=== PATIENT | female | born 1985 | race Hispanic/Latino ===

== ENCOUNTER 2017-10-20 14:17 | Emergency (ER) | payer BC, MEDICAID, OTHER ==
[2017-10-20] MEDS ORDERED: ASPIRIN 325 MG TABLET ONE (15:01)
[2017-10-20 15:40] LABS: APPEARANCE,URINE Clear (CLEAR); BILIRUBIN,URINE Negative (NEGATIVE); COLOR,URINE Yellow (YELLOW); GLUCOSE, URINE (UA) >=1000 mg/dL (NEGATIVE); KETONES,URINE Negative (NEGATIVE); LEUKOCYTE ESTERASE ,URINE Negative (NEGATIVE); NITRATE,URINE Negative (NEGATIVE); OCCULT BLOOD,URINE Negative (NEGATIVE); PH,URINE 7.5 (5.0-8.0); PROTEIN,URINE Negative (NEGATIVE); UROBILINOGEN,URINE 0.2 mg/dL (0.2-1.0)
[2017-10-20 15:42] LABS: HCG,QUAL RESULT NEGATIVE (NEGATIVE)
[2017-10-20 15:44] LABS: BASOPHILS % (AUTO) 0.8 % (0.0-5.0); EOSINOPHILS % (AUTO) 1.7 % (0.0-8.0); LYMPHOCYTES % (AUTO) 28.7 % (21.0-51.0); MEAN CORPUSCULAR HEMOGLOBIN 29.7 pg (27.0-33.0); MEAN CORPUSCULAR HGB CONC 35.3 g/dL (32.0-36.0); MEAN CORPUSCULAR VOLUME 84.1 fL (79-99); MONOCYTES % (AUTO) 5.5 % (3.0-13.0); NEUTROPHILS % (AUTO) 63.3 % (40.0-77.0); PLATELET COUNT (AUTO) 370 K/uL (130-400); RED BLOOD CELL COUNT(AUTO) 4.87 MIL/uL (4.00-5.50); RED CELL DISTRIBUTION WIDTH 13.9 % (11.0-15.5); WHITE BLOOD COUNT (AUTO) 10.1 K/uL (4.8-10.8)
[2017-10-20 15:51] LABS: CREATININE 0.7 mg/dL (0.5-1.5); POTASSIUM 3.6 mmol/L (3.5-5.1)
[2017-10-20 15:57] LABS: ALBUMIN 3.4 g/dL (3.5-5.0); BILIRUBIN,TOTAL 0.4 mg/dL (0.2-1.0); TOTAL PROTEIN, SERUM 7.5 g/dL (6.0-8.3)
[2017-10-20 16:04] LABS: INR 0.86 (0.85-1.15); PARTIAL THROMBOPLASTIN TIME 22.5 SEC (26.3-35.5); PROTHROMBIN TIME 8.9 SEC (9.6-11.6)
[2017-10-20 16:08] LABS: BACTERIA,URINE Rare /HPF (None Seen); SQUAMOUS EPITHELIAL CELL,UR Few /HPF (0-2); WBC,URINE 0-1 /HPF (0-1)
== END 2017-10-20 17:52 | disposition home or self-care (01) ==
LOC: EDH 14:17
DX: R07.89 Other chest pain (principal); E11.9 Type 2 diabetes mellitus without complications; Z79.4 Long term (current) use of insulin
CPT/HCPCS: 36415; 71045; 80053; 81001; 81025; 82550; 84484; 85025; 85610; 85730; 93005

== ENCOUNTER 2018-08-27 20:06 | Emergency (ER) | payer BC ==
[2018-08-27 21:09] LABS: APPEARANCE,URINE Clear (CLEAR); BILIRUBIN,URINE Negative (NEGATIVE); COLOR,URINE Yellow (YELLOW); GLUCOSE, URINE (UA) >=1000 mg/dL (NEGATIVE); KETONES,URINE Negative (NEGATIVE); LEUKOCYTE ESTERASE ,URINE Negative (NEGATIVE); NITRATE,URINE Negative (NEGATIVE); OCCULT BLOOD,URINE Large (NEGATIVE); PROTEIN,URINE Negative (NEGATIVE); UROBILINOGEN,URINE 0.2 mg/dL (0.2-1.0)
[2018-08-27 21:16] LABS: HCG,QUAL RESULT NEGATIVE (NEGATIVE)
[2018-08-27 21:38] LABS: BACTERIA,URINE Rare /HPF (None Seen); SQUAMOUS EPITHELIAL CELL,UR Rare /HPF (0-2); WBC,URINE 0-1 /HPF (0-1)
== END 2018-08-27 22:10 | disposition home or self-care (01) ==
LOC: EDH 20:06
DX: E10.8 Type 1 diabetes mellitus with unspecified complications (principal); F41.1 Generalized anxiety disorder; I10 Essential (primary) hypertension; E78.5 Hyperlipidemia, unspecified; Z90.49 Acquired absence of other specified parts of digestive tract; Z98.890 Other specified postprocedural states; Z79.4 Long term (current) use of insulin
CPT/HCPCS: 81001; 81025; 82948

== ENCOUNTER 2019-09-01 16:18 | Emergency (ER) | payer BC ==
[2019-09-01 16:56] LABS: BASOPHILS % (AUTO) 0.5 % (0.0-5.0); EOSINOPHILS % (AUTO) 1.3 % (0.0-8.0); HEMATOCRIT 41.1 % (36-48); LYMPHOCYTES % (AUTO) 22.9 % (21.0-51.0); MEAN CORPUSCULAR HEMOGLOBIN 28.7 pg (27.0-33.0); MEAN CORPUSCULAR HGB CONC 34.1 g/dL (32.0-36.0); MEAN CORPUSCULAR VOLUME 84.2 fL (79-99); MONOCYTES % (AUTO) 5.3 % (3.0-13.0); NEUTROPHILS % (AUTO) 69.5 % (40.0-77.0); PLATELET COUNT (AUTO) 330 K/uL (130-400); RED BLOOD CELL COUNT(AUTO) 4.88 MIL/uL (4.00-5.50); RED CELL DISTRIBUTION WIDTH 12.4 % (11.0-15.5); WHITE BLOOD COUNT (AUTO) 10.9 K/uL (4.8-10.8)
[2019-09-01] MEDS ORDERED: SODIUM CHLORIDE 0.9% 1000ML 1,000 ML IV ONE (17:02)
[2019-09-01 17:14] LABS: ALBUMIN 3.6 g/dL (3.5-5.0); BILIRUBIN,TOTAL 0.5 mg/dL (0.2-1.0); CREATININE 0.8 mg/dL (0.5-1.5); POTASSIUM 4.1 mmol/L (3.5-5.1); TOTAL PROTEIN, SERUM 7.7 g/dL (6.0-8.3)
[2019-09-01 18:12] LABS: ABG BASE EXCESS -2.2 mmol/L (-2.0-3.0); ABG HCO3 21.2 mmol/L (21.0-28.0); ABG OXYGEN SATURATION 97.8 % (95.0-99.0); ABG PCO2 33 mmHg (32-45)
== END 2019-09-01 20:39 | disposition home or self-care (01) ==
LOC: EDH 16:18
DX: E13.65 Other specified diabetes mellitus with hyperglycemia (principal); I10 Essential (primary) hypertension; E78.5 Hyperlipidemia, unspecified; Z98.890 Other specified postprocedural states
CPT/HCPCS: 36415; 36600; 80053; 82803; 82948; 83690; 85025; 87040 ×2; 96360; 96361; 99283; J7030

== ENCOUNTER 2020-06-14 18:53 | Emergency (ER) | payer BC, OTHER ==
[2020-06-14] MEDS ORDERED: KETOROLAC TROMETHAMINE 30MG/ML ONE (19:21)
[2020-06-14] MEDS ORDERED: DIAZEPAM 5 MG TABLET ONE (19:21)
[2020-06-14 20:50] LABS: CREATININE 0.9 mg/dL (0.5-1.5); POTASSIUM 4.2 mmol/L (3.5-5.1)
[2020-06-14 20:51] LABS: ALBUMIN 3.4 g/dL (3.5-5.0); BILIRUBIN,TOTAL 0.4 mg/dL (0.2-1.0); TOTAL PROTEIN, SERUM 6.8 g/dL (6.0-8.3)
[2020-06-14 21:00] LABS: BASOPHILS % (AUTO) 0.5 % (0.0-5.0); EOSINOPHILS % (AUTO) 1.3 % (0.0-8.0); HEMATOCRIT 41.3 % (36-48); LYMPHOCYTES % (AUTO) 27.1 % (21.0-51.0); MEAN CORPUSCULAR HEMOGLOBIN 28.8 pg (27.0-33.0); MEAN CORPUSCULAR HGB CONC 33.9 g/dL (32.0-36.0); MONOCYTES % (AUTO) 4.8 % (3.0-13.0); NEUTROPHILS % (AUTO) 65.8 % (40.0-77.0); PLATELET COUNT (AUTO) 309 K/uL (130-400); RED BLOOD CELL COUNT(AUTO) 4.86 MIL/uL (4.00-5.50); RED CELL DISTRIBUTION WIDTH 12.3 % (11.0-15.5); WHITE BLOOD COUNT (AUTO) 10.4 K/uL (4.8-10.8)
[2020-06-14] MEDS ORDERED: ONDANSETRON HCL 4 MG/2 ML VIAL ONE (21:13)
[2020-06-14] MEDS ORDERED: MORPHINE SULFATE 4 MG/1ML SYG ONE (21:13)
[2020-06-14] MEDS ORDERED: DEXAMETHASONE SOD PHOSPHATE 10MG/ML 1ML VIAL ONE (22:29)
== END 2020-06-14 22:50 | disposition home or self-care (01) ==
LOC: EDH 18:53
DX: M79.652 Pain in left thigh (principal); E78.5 Hyperlipidemia, unspecified; E11.9 Type 2 diabetes mellitus without complications; I10 Essential (primary) hypertension; Z90.49 Acquired absence of other specified parts of digestive tract; Z98.890 Other specified postprocedural states; Z72.0 Tobacco use; Z79.899 Other long term (current) drug therapy
CPT/HCPCS: 36415; 72131; 80053; 85025; 86140; 93926; 93971; 96372; 96374; 96375; 99285; J1100; J1885; J2270; J2405

== ENCOUNTER 2020-06-17 20:02 | Emergency (ER) | payer OTHER ==
[2020-06-17] MEDS ORDERED: FENTANYL CITRATE PF 50 MCG/1 ML 2ML VIAL ONE (20:24)
== END 2020-06-17 20:35 | disposition home or self-care (01) ==
LOC: EDH 20:02
DX: M54.42 Lumbago with sciatica, left side (principal); E11.9 Type 2 diabetes mellitus without complications; E78.5 Hyperlipidemia, unspecified; I10 Essential (primary) hypertension; Z90.49 Acquired absence of other specified parts of digestive tract; Z90.710 Acquired absence of both cervix and uterus; Z72.0 Tobacco use; Z79.899 Other long term (current) drug therapy
CPT/HCPCS: 96374; 99283; J3010

== ENCOUNTER 2024-07-05 19:28 | Emergency (ER) | payer BC, OTHER ==
[~2024-07-05] VITALS: Ht 157.5 cm; Wt 78.0 kg
[2024-07-05 19:30] VITALS: BP 149/88; PULSE 91; RESP 20; TEMP 97.9
--- NOTE | 2024-07-05 19:51 | EKG ---
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 : 1985 Requested By: CASS MERCHANT Order Number: [id number] Reading MD: Lambert Goddard Measurements Intervals Thayer Rate: 92 P: 10 NV: 160 QRS: 10 QRSD: 84 T: 0 QT: 362 QTc: 453 Interpretive Statements Sinus rhythm Multiple ventricular premature complexes Low voltage, precordial leads Borderline T abnormalities, diffuse leads Compared to ECG 10/20/2017 14:23:54 Ventricular premature complex(es) now present Low QRS voltage now present T-wave abnormality now present Electronically Signed On 07-06-2024 17:24:04 [employer] by Lambert Goddard Please click the below link to view image of tracing.
[2024-07-05 20:24] LABS: APPEARANCE,URINE CLEAR (CLEAR); BILIRUBIN,URINE NEGATIVE (NEGATIVE); COLOR,URINE LIGHT-YELLOW (YELLOW); GLUCOSE, URINE (UA) >=1000 mg/dL (NEGATIVE); KETONES,URINE NEGATIVE (NEGATIVE); LEUKOCYTE ESTERASE ,URINE NEGATIVE Leu/uL (NEGATIVE); NITRATE,URINE NEGATIVE (NEGATIVE); OCCULT BLOOD,URINE NEGATIVE (NEGATIVE); PH,URINE 6.5 (5.0-8.0); PROTEIN,URINE NEGATIVE (NEGATIVE)
[2024-07-05 20:25] LABS: ADD UA MICROSCOPIC YES
[2024-07-05 20:28] LABS: MUCUS,URINE RARE LPF (None Seen); RBC,URINE 0-1 /HPF (0-1); SQUAMOUS EPITHELIAL CELL,UR FEW /HPF (0-2); WBC,URINE 0-1 /HPF (0-1); YEAST,URINE BUDDING RARE /HPF (None Seen)
[2024-07-05] MEDS: 0.9%NACL 1000ML 1,000 ML IV ONE (20:47)
[2024-07-05 20:53] LABS: BASOPHILS # (AUTO) 0.08 K/uL (0.00-0.20); BASOPHILS % (AUTO) 0.8 % (0.0-5.0); EOSINOPHILS # (AUTO) 0.16 K/uL (0.00-0.70); EOSINOPHILS % (AUTO) 1.6 % (0.0-8.0); HEMATOCRIT 38.8 % (36-48); IMMATURE GRANULOCYTE ABSOLUTE 0.08 K/uL (0-1); LYMPHOCYTES % (AUTO) 29.7 % (21.0-51.0); MEAN CORPUSCULAR HEMOGLOBIN 29.2 pg (27.0-33.0); MEAN CORPUSCULAR HGB CONC 33.5 g/dL (32.0-36.0); MEAN CORPUSCULAR VOLUME 87.2 fL (79-99); MONOCYTES # (AUTO) 0.6 K/uL (0.1-1.0); MONOCYTES % (AUTO) 5.5 % (3.0-13.0); NEUTROPHILS # (AUTO) 6.3 K/uL (1.8-7.7); NEUTROPHILS % (AUTO) 61.6 % (40.0-77.0); PLATELET COUNT (AUTO) 403 K/uL (130-400); RED BLOOD CELL COUNT(AUTO) 4.45 MIL/uL (4.00-5.50); RED CELL DISTRIBUTION WIDTH 12.1 % (11.0-15.5); WHITE BLOOD COUNT (AUTO) 10.2 K/uL (4.8-10.8)
[2024-07-05 21:09] LABS: CARBON DIOXIDE 31 mmol/L (21-32); CHLORIDE 100 mmol/L (101-111); CREATININE 0.8 mg/dL (0.5-1.0); GLOMERULAR FILTR. RATE CALC 97 mL/min (>90); GLUCOSE,RANDOM 295 mg/dL (70-105); POTASSIUM 3.5 mmol/L (3.5-5.1); SODIUM SERUM 136 mmol/L (136-145); UREA NITROGEN, BLOOD 15 mg/dL (7-18)
[2024-07-05 21:36] LABS: CREATINE KINASE, TOTAL 94 U/L (21-232); HCG,QUANTITATIVE 0 mIU/mL (0-5)
[2024-07-05] MEDS ORDERED: MELO-108 PO (22:02)
--- NOTE | 2024-07-05 22:03 | ERN ---
General Chief Complaint: Hyperglycemia Stated Complaint: C/O HIGH GLUCOSE (308)AT HOME, DIZZINESS Time Seen by MD: 19:31 History of Present Illness Initial Comments 39-year-old female presents for dizziness and fatigue over the last few days. Patient reports that she feels a bit of congestion in her sinuses, she possibly and a low-grade fever. She has a sore throat. She reports that her glucose r eadings have been over 400 at times in the last few days despite taking her insulin. She denies any nausea vomiting diarrhea or abdominal discomfort. She was reports some lower back pain as well. This is chronic. Medical history: Type 2 diabetes, 60 mg of Lantus at night, 20 units of Humalog t.i.d., dyslipidemia on simvastatin. Allergies: Coded Allergies: No Known Drug Allergies (Unverified Allergy, Unknown, 09/01/19) Home Meds Active Scripts Meloxicam (Meloxicam) 15 Mg Tablet, 15 MG PO DAILY PRN for PAIN for 10 Days, #10 TAB Prov:CASS MERCHANT 07/05/24 Past Medical History Past Medical History: Diabetes-Type II, High Cholesterol, Hypertension Past Surgical History: Cholecystectomy, Female( History) LMP: Jun 22, 2024 ROS Dictation CONSTITUTIONAL: Fatigue and dizziness HEAD/FACE: No signs of trauma. EENT: No eye pain, no blurred vision, no tearing, no double vision, no ear pain, no ear discharge, no nose pain, no nasal congestion, no throat pain, no throat swelling, no mouth pain. RESPIRATORY: No cough, no orthopnea, no SOB, no stridor, no wheezing. CARDIOVASCULAR: No chest pain, no edema, no palpitations, no syncope. GASTROINTESTINAL/ABDOMINAL: No abdominal pain, no constipation, no diarrhea, no nausea, no vomiting. GENITOURINARY: No abnormal discharge, no dysuria, no frequent urination, no hematuria. No complaints of pain in the genitals. MUSCULOSKELETAL: No back pain, no gout, no joint pain, no joint swelling, no muscle pain, no muscle stiffness, no neck pain. INTEGUMENTARY: No change in color, no change in hair/nails, no dryness, no lesion, no lumps, no rash. NEUROLOGICAL/PSYCH: No anxiety, not depressed, no emotional problem, no headache, no numbness, no pre-existing deficit, no history of seizures, no tremors, no weakness. HEMATOLOGIC/LYMPHATIC: Not anemic, no history of blood clots, no apparent b leeding, no bruising, glands not swollen. All Systems Negative, Except as Noted. Physical Exam Physical Exam Dictation VITAL SIGNS: Reviewed. GENERAL APPEARANCE: Alert, oriented x3, no acute distress, obese. HEAD AND FACE: Non-traumatic. EYES: PERRL, pink conjunctivas, eyelid no trauma, anterior chamber clear. EARS: Pinnas intact and no signs of trauma or erythema. Ear canals clear and no discharge. TMs no erythema. NOSE: No discharge, no bleeding. OROPHARYNX: Mouth normal, teeth no caries, tongue pink. Pharynx clear, no erythema. Tonsils no exudates, no abscesses noted. Mucous membrane moist. NECK: Supple, non-tender, no thyromegaly, no masses, no JVD, no bruits. BREAST: Deferred. CHEST: No tenderness, no crepitus, no paradoxical movement, no retractions. LUNGS: Clear, well-ventilated, symmetric, no rales, no wheezing, no rhonchi, no stridor, good breath sounds bilaterally. HEART: Regular rate, regular rhythm, no murmur, no gallops. VASCULAR: No peripheral edema. ABDOMEN: Soft, positive bowel sounds, nondistended, no guarding, nontender, no rebound, no masses no hepatomegaly, no splenomegaly, no Molina's sign, no hernias. RECTAL: Deferred. GENITAL: Deferred. NEUROLOGICAL: Normal speech, gross motor function intact, gross sensory function intact. MUSCULOSKELETAL: Neck nontender, full range of motion, back nontender, full ra nge of motion. EXTREMITIES: Nontender, full range of motion. SKIN: Color pink, dry, no turgor, no rash, no lacerations, no abrasions, no contusions. LYMPHATICS: Deferred. Results Laboratory and Microbiology Lab and Micro Result Laboratory Tests Test 07/05/24 19:36 07/05/24 19:41 07/05/24 20:37 Whole Blood Glucose 312 MG/DL (70-110) H Urine Color LIGHT-YELLOW (YELLOW) Urine Appearance CLEAR (CLEAR) Urine pH 6.5 (5.0-8.0) Urine Specific [place] 1.041 (1.001-1.031) Urine Protein NEGATIVE mg/dL (NEGATIVE) Urine Glucose (UA) >=1000 mg/dL (NEGATIVE) H Urine Ketones NEGATIVE mg/dL (NEGATIVE) Urine Occult Blood NEGATIVE (NEGATIVE) Urine Nitrate NEGATIVE (NEGATIVE) Urine Bilirubin NEGATIVE mg/dL (NEGATIVE) Urine Urobilinogen 2.0 mg/dL (0.2-1.0) H Urine Leukocyte Esterase NEGATIVE Una/uL Urine RBC 0-1 /HPF (0-1) Urine WBC 0-1 /HPF (0-1) Urine Squamous Epithelial Cells FEW /HPF (0-2) Urine Bacteria None /HPF (None Seen) Urine Yeast RARE /HPF (None Seen) White Blood Count 10.2 K/uL (4.8-10.8) Red Blood Count 4.45 MIL/uL (4.00-5.50) Hemoglobin 13.0 g/dL (12.0-16.0) Hematocrit 38.8 % (36-48) Mean Corpuscular Volume 87.2 fL (79-99) Mean Corpuscular Hemoglobin 29.2 pg (27.0-33.0) Mean Corpuscular Hemoglobin Concent 33.5 g/dL (32.0-36.0) Red Cell Distribution Width 12.1 % (11.0-15.5) Platelet Count 403 K/uL (130-400) H Mean Platelet Volume 9.8 fL (7.5-10.5) Immature Granulocyte % (Auto) 0.8 % (0-1) Neutrophils (%) (Auto) 61.6 % (40.0-77.0) Lymphocytes (%) (Auto) 29.7 % (21.0-51.0) Monocytes (%) (Auto) 5.5 % (3.0-13.0) Eosinophils (%) (Auto) 1.6 % (0.0-8.0) Basophils (%) (Auto) 0.8 % (0.0-5.0) Neutrophils # (Auto) 6.3 K/uL (1.8-7.7) Lymphocytes # (Auto) 3.0 K/uL (1.0-4.8) Monocytes # (Auto) 0.6 K/uL (0.1-1.0) Eosinophils # (Auto) 0.16 K/uL (0.00-0.70) Basophils # (Auto) 0.08 K/uL (0.00-0.20) Absolute Immature Granulocyte (auto 0.08 K/uL (0-1) Nucleated Red Blood Cells 0.0 % (0.0-0.19) Sodium Level 136 mmol/L (136-145) Potassium Level 3.5 mmol/L (3.5-5.1) Chloride Level 100 mmol/L (101-111) L Carbon Dioxide Level 31 mmol/L (21-32) Blood Urea Nitrogen 15 mg/dL (7-18) Creatinine 0.8 mg/dL (0.5-1.0) Glomerular Filtration Rate Calc 97 mL/min (>90) Random Glucose 295 mg/dL (70-105) H Total Calcium 8.4 mg/dL (8.5-10.1) L Total Creatine Kinase 94 U/L (21-232) Troponin I High Sensitivity < 4.0 ng/L (4-50) L Human Chorionic Gonadotropin, Quant 0 mIU/mL (0-5) MDM CC: Fatigue, dizziness, hyperglycemia, lower back pain Historian: Patient Comorbidities: Obesity, diabetes, dyslipidemia Differential diagnosis: DKA, hypoglycemia, electrolyte abnormalities, ACS, arrhythmia, other. EKG: Sinus rhythm rate of 92 normal axis good R-wave progression intervals are stable. There unifocal PVCs noted. No STEMI. Independently interpreted by me. Labs: No leukocytosis, no anemia. Metabolic panel shows a glucose 312, otherwise unremarkable. The electrolytes are stable carbon dioxide stable. Low suspicion for DKA major metabolic derangement. Urinalysis shows high specific gravity and glucose consistent with dehydration and hyperglycemia. Patient received 1 L normal saline, also dose of Toradol for pain control. I do not see any life threats at this time. She received a dose of fluid for dehydration. Otherwise her glucose is controlled. She did take insulin prior to arrival here which probably correct with a glucose. We will DC the PCP follow up. ED Course Orders Procedure Category Date Status Time Cardiac Panel LAB 07/05/24 Complete 19:36 Cbc With Differential LAB 07/05/24 Complete 19:36 Basic Metabolic Panel LAB 07/05/24 Complete 19:36 Hcg,Quantitative LAB 07/05/24 Complete 19:36 Urinalysis Profile LAB 07/05/24 Complete 19:36 12 Lead Ekg Tracing- EKG 07/05/24 Complete Technical 19:36 0.9%Nacl 1000ml (Ns PHA 07/05/24 Complete 1000ml) 20:00 Ketorolac PHA 07/05/24 Complete Tromethamine 15mg/Ml 22:30 Current Medications Medications (Trade) Dose Ordered Sig/Brielle Route PRN Reason Start Time Stop Time Status Last Admin Dose Admin Ketorolac Tromethamine (toRADol) 15 mg ONCE ONCE IV 07/05/24 22:30 07/05/24 22:31 DC 07/05/24 22:21 Sodium Chloride 1,000 ml @ 0 mls/hr ONCE ONCE IV 07/05/24 20:00 07/05/24 20:01 DC 07/05/24 20:47 Vital Signs Date Time Temp Pulse Resp B/P (MAP) Pulse Ox O2 Delivery O2 Flow Rate FiO2 07/05/24 19:30 97.9 91 20 149/88 98 Room Air DX & DISP Disposition: Discharge Departure Impression: Primary Impression: Hyperglycemia Additional Impressions: Dehydration, Lower back pain Condition: Stable Scripts Meloxicam (Meloxicam) 15 Mg Tablet 15 MG PO DAILY PRN for PAIN for 10 Days, #10 TAB Prov: CASS MERCHANT DO 07/05/24 Additional Instructions: Your symptoms are consistent with hyperglycemia and dehydration. Your vital signs are stable. Your blood work (CBC, BNP, urinalysis) is stable other than elevated blood glucose at 307. You also have signs of dehydration on her urinalysis. You received a 1 L normal saline here in the ER. He had also received a dose of Toradol for your pain. I prescribed meloxicam for your lower back pain. Use as needed. Please continue to take your insulin as prescribed. Please follow up with your primary doctor. Please return to the emergency department as needed. Referrals: SELF,REFERRAL (PCP) CASS MERCHANT DO Jul 05, 2024 22:03
[2024-07-05] MEDS: ketOROlac 15MG/ML VIAL (15MG/ML) IV ONE (22:21)
== END 2024-07-05 22:40 | disposition home or self-care (01) ==
LOC: EDH 19:28
DX: E11.65 Type 2 diabetes mellitus with hyperglycemia (principal); E66.9 Obesity, unspecified; E78.00 Pure hypercholesterolemia, unspecified; E86.0 Dehydration; R10.2 Pelvic and perineal pain; I10 Essential (primary) hypertension; Z79.4 Long term (current) use of insulin; Z90.49 Acquired absence of other specified parts of digestive tract
CPT/HCPCS: 99284; 96374; 96361; 82550; 84484; 80048; 84702; 85025; 82948; 81001; 36415; 93005; J7030; J1885

== ENCOUNTER 2025-04-25 17:04 | Emergency (ER) | payer BC ==
[~2025-04-25] VITALS: Ht 157.5 cm; Wt 77.1 kg
[~2025-04-25 17:04] MED LIST: MELO-108 PO
[2025-04-25 18:01] LABS: IMMATURE GRANULOCYTE ABSOLUTE 0.05 K/uL (0-1); NUCLEATED RED BLOOD CELLS 0.0 % (0.0-0.19); PLATELET COUNT (AUTO) 331 K/uL (130-400); RED BLOOD CELL COUNT(AUTO) 5.01 MIL/uL (4.00-5.50); RED CELL DISTRIBUTION WIDTH 12.7 % (11.0-15.5); WHITE BLOOD COUNT (AUTO) 8.1 K/uL (4.8-10.8)
[2025-04-25 18:17] LABS: CREATININE 0.6 mg/dL (0.5-1.0); GLOMERULAR FILTR. RATE CALC 118.0 mL/min (>90); GLUCOSE,RANDOM 244.0 mg/dL (70-105); SODIUM SERUM 137.0 mmol/L (136-145); UREA NITROGEN, BLOOD 14.0 mg/dL (7-18)
--- NOTE | 2025-04-25 18:19 | ERN ---
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 At the time of my assessment the patient states she only feels a little anxious. Denies any chest pain, chest discomfort, dizziness, numbness, tingling or unilateral has. Allergies: Coded Allergies: No Known Drug Allergies (Unverified Allergy, Unknown, 09/01/19) Home Meds Active Scripts Meloxicam (Meloxicam) 15 Mg Tablet, 15 MG PO DAILY PRN for PAIN for 10 Days, #10 TAB Prov:CASS MERCHANT 07/05/24 Past Medical History Past Medical History: Anxiety, Depression, Diabetes-Type II, High Cholesterol, Hypertension Surgical History: Cholecystectomy, Review of System Dictation Constitutional: Negative for fever,chills, and weight loss Eyes: Negative for injury, pain,redness, and discharge ENT: Negative for injury,pain or swelling Cardiovascular: Negative for chest pain, palpitations, and edema Respiratory: Negative for shortness of breath, cough, and wheezing, Abdomen/GI: Negative for abdominal pain, nausea, vomiting, diarrhea, and cons tipation Back: Negative for injury and pain : Negative for injury, bleeding and discharge MS/Extremity: Negative for injury and deformity Skin: Negative for rash, and discoloration Neuro: Negative for headache, weakness, numbness, tingling, and seizure Psych: Negative for suicide ideation, homicidal ideation, and hallucinations Review of Systems: was completed Initial Vital Sign VS Vital Signs Date Time Temp Pulse Resp B/P (MAP) Pulse Ox O2 Delivery O2 Flow Rate FiO2 04/25/25 17:07 98.1 79 17 162/96 96 Room Air 0 04/25/25 17:43 21 Physical Exam Dictation General: awake, alert, NAD Head/Face: Normocephalic, atraumatic Eyes: PERRL, EOMI, vision at baseline ENT: oral cavity clear, TMs clear, no signs of infection Neck: Trachea midline, supple, no nuchal rigidity Cardiovascular: RRR, normal S1/S2, No MRGs, no JVD Respiratory: CTAB, no respiratory distress, No rales or wheezes Abdomen: Soft, non-tender, non-distended, normal bowel sounds, no guarding or rebound. Skin: Warm, dry, normal turgor, no rash MS/Extremity: Pulses equal, no cyanosis, neurovascular intact, FROM Neuro: COAx4, GCS 15, strength 5/5, CN 2-12 intact, normal cerebellar exam, normal gait, Psych: Normal behavior, mood, and affect normal Results (Laboratory/Radiology) Laboratory/Radiology Laboratory Tests Test 04/25/25 17:32 White Blood Count 8.1 K/uL (4.8-10.8) Red Blood Count 5.01 MIL/uL (4.00-5.50) Hemoglobin 14.9 g/dL (12.0-16.0) Hematocrit 43.0 % (36-48) Mean Corpuscular Volume 85.8 fL (79-99) Mean Corpuscular Hemoglobin 29.7 pg (27.0-33.0) Mean Corpuscular Hemoglobin Concent 34.7 g/dL (32.0-36.0) Red Cell Distribution Width 12.7 % (11.0-15.5) Platelet Count 331 K/uL (130-400) Mean Platelet Volume 10.7 fL (7.5-10.5) H Immature Granulocyte % (Auto) 0.6 % (0-1) Neutrophils (%) (Auto) 66.2 % (40.0-77.0) Lymphocytes (%) (Auto) 26.4 % (21.0-51.0) Monocytes (%) (Auto) 5.3 % (3.0-13.0) Eosinophils (%) (Auto) 0.5 % (0.0-8.0) Basophils (%) (Auto) 1.0 % (0.0-5.0) Neutrophils # (Auto) 5.3 K/uL (1.8-7.7) Lymphocytes # (Auto) 2.1 K/uL (1.0-4.8) Monocytes # (Auto) 0.4 K/uL (0.1-1.0) Eosinophils # (Auto) 0.04 K/uL (0.00-0.70) Basophils # (Auto) 0.08 K/uL (0.00-0.20) Absolute Immature Granulocyte (auto 0.05 K/uL (0-1) Nucleated Red Blood Cells 0.0 % (0.0-0.19) Sodium Level 137 mmol/L (136-145) Potassium Level 3.6 mmol/L (3.5-5.1) Chloride Level 99 mmol/L (101-111) L Carbon Dioxide Level 24 mmol/L (21-32) Blood Urea Nitrogen 14 mg/dL (7-18) Creatinine 0.6 mg/dL (0.5-1.0) Glomerular Filtration Rate Calc 118 mL/min (>90) Random Glucose 244 mg/dL (70-105) H Total Calcium 8.3 mg/dL (8.5-10.1) L Troponin I High Sensitivity < 4 ng/L (4-50) L Labs Reviewed?: Yes ED Course ED Course Orders Procedure Category Date Status Time Cbc With Differential LAB 04/25/25 Complete 17:18 Basic Metabolic Panel LAB 04/25/25 Complete 17:18 Troponin I High LAB 04/25/25 Complete Sensitivity 17:18 12 Lead Ekg Tracing- EKG 04/25/25 Logged Technical 17:18 Hydroxyzine 25mg Tab PHA 04/25/25 Complete (Atarax 25mg Tab) 17:18 Current Medications Medications (Trade) Dose Ordered Sig/Brielle Route PRN Reason Start Time Stop Time Status Last Admin Dose Admin Hydroxyzine HCl (ATArax 25MG TAB) 25 mg ONCE STAT PO 04/25/25 17:18 04/25/25 17:32 DC 04/25/25 18:46 Vital Signs Date Time Temp Pulse Resp B/P (MAP) Pulse Ox O2 Delivery O2 Flow Rate FiO2 04/25/25 17:43 98.1 90 20 164/98 99 Room Air* 0 21 04/25/25 17:07 98.1 79 17 162/96 96 Room Air 0 Medical Decision Making MDM MDM: 40 Year old female with a history of hypertension, diabetes, and cholesterol coming in with complaints of palpitations, elevated blood pressure and tingling sensation to bilateral hands 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 At the time of my assessment the patient states she only feels a little anxious. Denies any chest pain, chest discomfort, dizziness, numbness, tingling or unilateral has. Blood work is unremarkable. EKGs shows no ST elevations or dysrhythmias. Vital signs have remained stable. On reassessment patient is resting couple of day in bed, no acute distress noted. Discussed with the patient more than likely she has just reaction and that is what she began to feel in his symptoms. Educated patient that she needs to follow up with her PCP and return to the hospital if she has any worsening symptoms. Patient verbalized understanding, answered all questions. Differential diagnosis: Stress reaction, anxiety, STEMI, NSTEMI, Rationale: Tests considered and ordered secondary to shared decision making include: Previous outside records reviewed: Old ER visits. Risk of complication and/or morbidity or mortality of patient management: None Medications-Per medication reconciliation Need for hospitalization: Patient does not meet criteria for hospitalization. Need for emergency major/minor surgery: No There are no social concerns with this patient. Prescription drug management Prescriptions will include symptomatic care Patient's prior external medical records from other ER visits were reviewed by me as indicated. Prior testing and results from previous visits were reviewed. Prior tests were taken into account with medical decision making and resource utilization, independent historian/historians were used to obtain complete medical history. I independently interpreted the test that were performed, results were reviewed by me and considered findings on radiology if ordered. Medical management and examination interpretation discussions were had by me with other qualified healthcare professionals as indicated for the patient's care. DX & DISP Disposition: Discharge Departure Impression: Primary Impression: Stress reaction Condition: Stable Additional Instructions: Follow up with your primary care provider in 1-2 days. Return to the hospital if you have any worsening symptoms. Referrals: KUNAL TIMMONS JR, MD (PCP) Time of Disposition: 19:15 I have reviewed the case, and I agree with, Diagnosis and Plan MEI NELSON [facility] Apr 25, 2025 18:19
--- NOTE | 2025-04-25 18:54 | NUR ---
INFORMATIVE NOTE: A NURSE BY THE NAME OF "YULIA" CALLED WANTING INFORMATION ON THE PT. AFTER ASKING THE PT IF I COULD GET HER VERBAL PERMISSION TO SPEAK TO "YULIA", THE PT STATED SHE WOULD RATHER NOT HAVE US GIVE INFORMATION. MRS MOORE STATED THAT SHE WOULD FOLLOW UP WITH THE "MEDICAL CREW" TOMORROW. I INFORMED "YULIA" AND SHE STATED THAT HOSPITALS NORMALLY GIVEN WHATS ASKED FOR. I INFORMED HER THAT HAD THE PT AGREED, THAT I WOULD HAVE DOCUMENTED AND AND GIVEN INFORMATION. SHE ASKED FOR VITAL SIGNS. I INFORMED HER THAT SHE HAD BEEN SEEN AND WAS AWAITING AND THAT WAS THE EXTENT OF WHAT I AM ABLE TO TELL HER WITHOUT FURTHER PERMISSION BY THE PT.
[2025-04-25 19:57] VITALS: BP 145/66; PULSE 88; RESP 20; TEMP 98.5; O2SAT 96
--- NOTE | 2025-04-26 02:13 | EKG ---
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
== END 2025-04-25 20:00 | disposition home or self-care (01) ==
LOC: EDH 17:04
DX: F43.9 Reaction to severe stress, unspecified (principal); E11.9 Type 2 diabetes mellitus without complications; E78.00 Pure hypercholesterolemia, unspecified; F41.9 Anxiety disorder, unspecified; I10 Essential (primary) hypertension; Z90.49 Acquired absence of other specified parts of digestive tract
CPT/HCPCS: 36415; 80048; 84484; 85025; 93005; 99284